=== PATIENT | female | born 2000 | race Caucasian/White ===

== ENCOUNTER 2021-02-01 14:34 | Emergency (ER) | payer MEDICAID, OTHER ==
[~2021-02-01] VITALS: Ht 162.5 cm; Wt 135.7 kg
[2021-02-01] MEDS ORDERED: IBUPROFEN 600 MG (MOTRIN) TAB PO ONE (15:00)
[2021-02-01 15:03] LABS: BILIRUBIN,URINE NEGATIVE (NEGATIVE); CLARITY,URINE CLOUDY; COLOR,URINE LIGHT RED; GLUCOSE, URINE (UA) NEGATIVE (NEGATIVE); KETONES,URINE NEGATIVE (NEGATIVE); LEUKOCYTE ESTERASE ,URINE NEGATIVE (NEGATIVE); NITRITE,URINE NEGATIVE (NEGATIVE); PROTEIN,URINE NEGATIVE (NEGATIVE); RBC,URINE TNTC /HPF
--- NOTE | 2021-02-01 15:41 | ED GU-Female ---
General Chief Complaint: Female Reproductive Stated Complaint: SEVERE MENSTRUAL CRAMPS Nursing Triage Note: Pt ambulatory to ED reporting severe menstrual cramping. Menses began yesterday, dose of Midol at 1000. Pt was prescribed BCP for regulation and she hadn't been able to get to [place] for them and off of them x 2 mo. Source: patient History of Present Illness Date Seen by Provider: Feb 01, 2021 Time Seen by Provider: 14:50 Initial Comments Patient is a 20-year-old female who is on day 2 of her menstrual period with history of menorrhagia who presents with painful menstrual bleeding. Pain is rated moderate to severe. Patient took a dose of Midol at 10 AM. Patient reports thick dark menstrual blood and has saturated 3 pads today. Typically she goes through 8 pads per cycle day. She has previously been prescribed oral contraceptive to control her bleeding. However due to her recent move the past 2 months she has been off control. She denies urinary frequency urgency dysuria. She denies flank pain, abdominal pain, nausea vomiting or sweats. No fevers chills, constipation or diarrhea. No other acute symptoms or complaints. No prior abdominal surgeries. Patient is currently sexually active. Timing/Duration: yesterday, intermittent Severity/Quality: throbbing Location: other Radiation: other Activities at Onset: sleep Sexual [place] History: other Modifying Factors: Improves With Vomiting Associated Symptoms: other Allergies and Home Medications Allergies Coded Allergies: No Known Drug Allergies (Unverified , 02/01/21) Patient Home Medication List Home Medication List Reviewed: Yes Review of Systems Review of Systems Constitutional: no symptoms reported EENTM: no symptoms reported Respiratory: no symptoms reported Cardiovascular: no symptoms reported Gastrointestinal: no symptoms reported : No LMP: Jan 31, 2021 Musculoskeletal: no symptoms reported Skin: see HPI Psychiatric/Neurological: No Symptoms Reported Endocrine: No Symptoms Reported Hematologic/Lymphatic: No Symptoms Reported All Other Systemes Reviewed Negative Unless Noted: Yes Past Tcgqwqm-Wizucs-Qydaca Hx Past Med/Social Hx: Reviewed Nursing Past Med/Soc Hx Patient Social History Alcohol Use: Denies Use Smoking Status: Current Someday Smoker Type Used: Electronic/Vapor 2nd Hand Smoke Exposure: Yes Recent Infectious Disease Expo: No Recent Hopitalizations: No Ebola Symptoms: Denies Symptoms Listed Immunizations Up To Date PED Vaccines UTD: Yes Seasonal Allergies Seasonal Allergies: No Past Medical History Surgeries: No Respiratory: No Cardiac: No Neurological: No Hx : 0 Hx Para: 0 Female Reproductive Disorders: Menstrual Problems Sexually Transmitted Disease: No Genitourinary: No Gastrointestinal: No Musculoskeletal: No Endocrine: No HEENT: No Cancer: No Psychosocial: Yes ADD/ADHD, Depression Integumentary: No Blood Disorders: No Physical Exam Vital Signs Vital Signs - First Documented 02/01/21 14:48 Temp 36.7 Pulse 83 Resp 18 B/P (MAP) 167/97 O2 Delivery Room Air Capillary Refill : Height, Weight, BMI Height: '" Weight: lbs. oz. kg; 51.00 BMI Method: General Appearance: WD/WN, no apparent distress, other HEENT: PERRL/EOMI, normal ENT inspection, pharynx normal Neck: non-tender, full range of motion, supple Cardiovascular: normal peripheral pulses, regular rate, rhythm Respiratory: lungs clear Gastrointestinal: soft, tenderness (suprapubic) Pelvic: no masses Back: no CVA tenderness, no vertebral tenderness Extremities: normal range of motion, non-tender, normal inspection Neurologic/Psychiatric: alert, oriented x 3 Skin: normal color Lymphatic: no adenopathy Focused Exam Sepsis Stage: Ruled Out Progress/Results/Core Measures Suspected Sepsis SIRS Temperature: Pulse: Respiratory Rate: Blood Pressure / Mean: Results/Orders Lab Results Laboratory Tests Test 02/01/21 14:50 Range/Units Urine Color LIGHT RED Urine Clarity CLOUDY Urine pH 6.0 5-9 Urine Specific [place] 1.010 L 1.016-1.022 Urine Protein NEGATIVE NEGATIVE Urine Glucose (UA) NEGATIVE NEGATIVE Urine Ketones NEGATIVE NEGATIVE Urine Nitrite NEGATIVE NEGATIVE Urine Bilirubin NEGATIVE NEGATIVE Urine Urobilinogen 0.2 < = 1.0 MG/DL Urine Leukocyte Esterase NEGATIVE NEGATIVE Urine RBC (Auto) 3+ H NEGATIVE Urine RBC TNTC H /HPF Urine WBC /HPF Urine Crystals /LPF Urine Bacteria /HPF Urine Casts /LPF Urine Mucus /LPF Urine Culture Indicated NO Urine Test NEGATIVE NEGATIVE My Orders Orders - TRAV BABCOCK DO Ua Culture If Indicated (02/01/21 14:57) Hcg,Qualitative Urine (02/01/21 14:57) Ibuprofen Tablet (Motrin Tablet) (02/01/21 15:00) Urine Bedside (02/01/21 15:07) Medications Given in ED Current Medications Medications Dose Ordered Sig/Jorge Route Start Time Stop Time Status Last Admin Dose Admin Ibuprofen 600 mg ONCE ONCE PO 02/01/21 15:00 02/01/21 15:01 DC 02/01/21 15:06 600 MG Vital Signs/I&O 02/01/21 14:48 Temp 36.7 Pulse 83 Resp 18 B/P (MAP) 167/97 O2 Delivery Room Air Capillary Refill : Departure Communication (Admissions) Abdomen soft, nonsurgical. Ibuprofen given for pain. UA negative for nitrates and leukocytes esterase. No dysuria reported. hCG negative. Ibuprofen given. Recommend watchful waiting supportive care with PCP follow-up. Return precautions reviewed. Patient verbalizes understanding agreement discharge instructions prior to departure. Impression Primary Impression: Dysmenorrhea Disposition: HOME, SELF-CARE Condition: Stable Departure-Patient Inst. Decision time for Depature: 15:41 Referrals: FERNANDO CHOE MD (PCP/Family) Primary Care Physician Patient Instructions: Menstrual Cramps (DC) Add. Discharge Instructions: Please alternate ibuprofen with Midol for treatment of pelvic pain and cramps. Follow-up with a local PCP or in origin human development professor for repeat evaluation and management of painful menstrual periods. Return to the ED if new or worsening symptoms. All discharge instructions reviewed with patient and/or family. Voiced understanding. TRAV BABCOCK DO Feb 01, 2021 15:41
== END 2021-02-01 15:43 | disposition home or self-care (01) ==
LOC: ER FS 14:38
DX: N94.6 Dysmenorrhea, unspecified (principal); F17.290 Nicotine dependence, other tobacco product, uncomplicated
CPT/HCPCS: 81000; 84703; 99283

== ENCOUNTER 2021-05-13 10:02 | Emergency (ER) | payer MEDICAID ==
[~2021-05-13] VITALS: Ht 162.6 cm; Wt 137.5 kg
[2021-05-13 10:14] VITALS: BP 149/84
--- NOTE | 2021-05-13 10:59 | ED General ---
General Chief Complaint: Back Problems Stated Complaint: BACK CYST Nursing Triage Note: Patient reports upper medial back/lower neck pain intermittently for 2-3 years. She reports the pain is usually worse in the morning. Source of Information: Patient History of Present Illness Date Seen by Provider: May 13, 2021 Time Seen by Provider: 10:08 Initial Comments 20-year-old female presenting with complaints of a tender mass or swollen area to the upper part of her back and lower neck. She states it has been there for several years but only been tender in the last few days. It seems to be worse in the mornings. She denies any direct trauma to the area. She has not taken any medication for it. She has not been seen for it previously. She denies any fever but feels like she has been getting chilled easily. She denies any numbness or tingling into her arms or legs. She has no chest pain. She does occasionally get migraine headaches but it does not seem to be related to when the swollen area on her back is tender. She reports recently moving to [place] and not establishing a doctor here since she moved from [place]. Associated Systoms: No Chest Pain, No Cough, No Diaphoresis, No Loss of Appetite, No Malaise, No Nausea/Vomiting, No Rash, No Seizure, No Shortness of Air, No Syncope, No Weakness Allergies and Home Medications Allergies Coded Allergies: No Known Drug Allergies (Unverified , 02/01/21) Patient Home Medication List Home Medication List Reviewed: Yes Review of Systems Review of Systems Constitutional: chills; No dizziness, No fever EENTM: no symptoms reported Respiratory: no symptoms reported Cardiovascular: no symptoms reported Gastrointestinal: no symptoms reported Genitourinary: no symptoms reported Musculoskeletal: see HPI, other (swollen area over upper thoracic and lower cervical spine area on back. slightly tender) Skin: No change in color Psychiatric/Neurological: See HPI; Denies Anxiety, Denies Numbness, Denies Paresthesia, Denies Tingling, Denies Weakness Past Xuxmhoq-Hcstnf-Azvfve Hx Patient Social History Tobacco Use?: No Use of E-Cig and/or Vaping dev: Yes Substance use?: No Alcohol Use?: No Pt feels they are or have been: No Immunizations Up To Date PED Vaccines UTD: Yes Seasonal Allergies Seasonal Allergies: No Past Medical History Surgery/Hospitalization HX: Polycystic Ovarian Disease Surgeries: No Respiratory: No Cardiac: No Neurological: No Female Reproductive Disorders: Menstrual Problems Sexually Transmitted Disease: No Genitourinary: No Gastrointestinal: No Musculoskeletal: No Endocrine: No HEENT: No Cancer: No Psychosocial: Yes ADD/ADHD, Depression Integumentary: No Blood Disorders: No Physical Exam Vital Signs Vital Signs - First Documented 05/13/21 10:14 Temp 35.9 Pulse 80 Resp 20 B/P (MAP) 149/84 (105) Pulse Ox 99 O2 Delivery Room Air Capillary Refill : Less Than 3 Seconds Height, Weight, BMI Height: '" Weight: lbs. oz. kg; 52.00 BMI Method: General Appearance: No Apparent Distress, Obese HEENT: PERRL/EOMI Neck: Full Range of Motion, Normal Inspection, Non Tender, Supple Respiratory: Chest Non Tender, Lungs Clear, Normal Breath Sounds, No Accessory Muscle Use, No Respiratory Distress Cardiovascular: Regular Rate, Rhythm, Normal Peripheral Pulses Back: Other (swollen slightly tender area over lower cervical and upper thoracic spine. mass has a spongy consistency and does not seem to have fluctuance or fluid wave. No erythema or increased warmth) Extremity: Normal Capillary Refill, Normal Inspection, No Pedal Edema Neurologic/Psychiatric: Alert, Oriented x3, No Motor/Sensory Deficits, Normal Mood/Affect, ground water technician II-XII Norm as Tested Skin: Normal Color, Warm/Dry; No Erythema Progress/Results/Core Measures Suspected Sepsis SIRS Temperature: Pulse: 80 Respiratory Rate: 20 Blood Pressure 149 /84 Mean: 105 Results/Orders My Orders Orders - MIRYAM BARRERA MD Ct Chest Wo (05/13/21 10:52) Vital Signs/I&O 05/13/21 10:14 Temp 35.9 Pulse 80 Resp 20 B/P (MAP) 149/84 (105) Pulse Ox 99 O2 Delivery Room Air Capillary Refill : Less Than 3 Seconds Blood Pressure Mean: 105 Progress Note #1: Progress Note Will check CT chest to see if the soft tissue area shows up as anything abnormal to get more detail on the mass. There looks to be a possible lipoma to the back but will see if the scan can get more detail of the area. Advised pt that she may need to have surgery to remove it if it is bothering her. Progress Note #2: Progress Note Advised pt that no specific abnormality on CT scan. Could just be collection of subcutaneous fatty tissue or possible Lipoma. Try NSAIDS for discomfort and check with clinic for continued concerns. If persists to give her pain/concerns then they may do ultrasound or MRI to get further detail Diagnostic Imaging Diagonstic Imaging: CT Plain Films/CT/US/NM/MRI: chest Comments [facility] [place] NAME: JULIEN MERA [facility] REC#: [id number] PT STATUS: DEP ER : 2001 PHYSICIAN: MIRYAM BARRERA MD ADMIT DATE: 05/13/21/ER FS Draft Date of Exam:05/13/21 CT CHEST WO PROCEDURE: CT chest without contrast. TECHNIQUE: Multiple contiguous axial images were obtained through the chest without the use of intravenous contrast. Auto Exposure Controls were utilized during the CT exam to meet ALARA standards for radiation dose reduction. INDICATION: Painful lump in the upper midback. FINDINGS: No visible marker is identified to denote the area of painful lump. This would be helpful. No definite thoracic lymphadenopathy is seen. There is no pericardial or pleural fluid identified. No pulmonary infiltrates, nodules, or masses are seen. There appears to be normal curvature and alignment of the thoracic spine. Vertebral body heights are maintained. No definite soft tissue mass or fluid collection is identified. The upper abdomen is unremarkable. IMPRESSION: Unremarkable noncontrast CT of the chest. Dictated on workstation # [id number] Dict: 05/13/21 1207 Trans: 05/13/21 1217 [id number] [id number] Interpreted by: INOCENCIO MERA MD Electronically signed by: Reviewed: Reviewed by Me Departure Impression Primary Impression: Subcutaneous mass of back Disposition: 01 HOME, SELF-CARE Condition: Stable Departure-Patient Inst. Decision time for Depature: 11:38 Referrals: NO,LOCAL PHYSICIAN (PCP) Primary Care Physician [facility] Patient Instructions: Lipoma Add. Discharge Instructions: The area of swelling on your back does not appear to be a cyst or fluid filled mass. There appears to be a collection of subcutaneous fat tissue in this area and it could be a lipoma causing your symptoms. Establish care with a local provider with [facility] by calling [phone] and they can continue to work with you on this and with your Polycystic Ovarian issues as well. In the meantime you could try taking an anti-inflammatory medicine like Ibuprofen or Naproxen to help with the discomfort in the area. All discharge instructions reviewed with patient and/or family. Voiced understanding. Work/School Note: Work Release Form Date Seen in the Emergency Department: May 13, 2021 Return to Work: May 13, 2021 Restrictions: No Restrictions Other Restrictions Listed Below: Please excuse being a few minutes late as coming from ER. Images Torso/Trunk 1 - Swelling (swollen area of tissue that is slightly tender) MIRYAM BARRERA MD May 13, 2021 10:59
--- NOTE | 2021-05-13 12:17 | Diagnostic Imaging Report ---
PROCEDURE: CT chest without contrast. TECHNIQUE: Multiple contiguous axial images were obtained through the chest without the use of intravenous contrast. Auto Exposure Controls were utilized during the CT exam to meet ALARA standards for radiation dose reduction. INDICATION: Painful lump in the upper midback. FINDINGS: No visible marker is identified to denote the area of painful lump. This would be helpful. No definite thoracic lymphadenopathy is seen. There is no pericardial or pleural fluid identified. No pulmonary infiltrates, nodules, or masses are seen. There appears to be normal curvature and alignment of the thoracic spine. Vertebral body heights are maintained. No definite soft tissue mass or fluid collection is identified. The upper abdomen is unremarkable. IMPRESSION: Unremarkable noncontrast CT of the chest. Dictated by: Dictated on workstation # [id number]
== END 2021-05-13 11:47 | disposition home or self-care (01) ==
LOC: EDUNIT# 10:02 → ER FS 10:04
DX: R22.2 Localized swelling, mass and lump, trunk (principal); E66.9 Obesity, unspecified
CPT/HCPCS: 71250

== ENCOUNTER 2021-05-27 19:49 | Emergency (ER) | payer MEDICAID ==
[~2021-05-27] VITALS: Ht 162.5 cm; Wt 141.6 kg
[2021-05-27] MEDS ORDERED: METH4TAB10 PO (20:32)
--- NOTE | 2021-05-27 20:32 | ED EENT ---
History of Present Illness General Chief Complaint: Oral/Throat Problems Stated Complaint: TONSIL SWELLING/IRRITAION Nursing Triage Note: PT IN PER POV WITH C/O SORE THROAT X3 HOURS. REPORTS TAKING IBUPROFEN AT 1700. STATES CONTACT WITH SOMEONE POSITIVE STREP THROAT X3 DAYS AGO. Source: patient Exam Limitations: no limitations History of Present Illness Date Seen by Provider: May 27, 2021 Time Seen by Provider: 20:19 Initial Comments 20-year-old female with no significant past medical history coming in due to a sore throat that is been ongoing for roughly 3 hours. Pain is roughly 1 out of 10, mild, sharp pain. Worse with swallowing. Says someone she was around had strep throat 3 days ago. Denies any fever. Did take ibuprofen for the pain which helped. Denies any cough, shortness of breath, vomiting, diarrhea, weakness, numbness, chest pain, or any other concerns. LMP was 3 weeks ago. Does vape. Allergies and Home Medications Allergies Coded Allergies: No Known Drug Allergies (Unverified , 02/01/21) Patient Home Medication List Home Medication List Reviewed: Yes Review of Systems Review of Systems Constitutional: No chills, No fever Eyes: Denies Blurred Vision Ears: Denies Dizziness Nose: denies congestion, denies pain Mouth: no symptoms reported Throat: pain; denies swelling, denies neck stiffness, denies muffled; painful swallowing; denies difficulty with fluids Respiratory: No cough, No short of breath Cardiovascular: No chest pain Gastrointestinal: No abdominal pain, No diarrhea, No nausea, No vomiting Musculoskeletal: no symptoms reported Skin: no symptoms reported Neurological: No Symptoms Reported Hematologic/Lymphatic: No Symptoms Reported Immunological/Allergic: no symptoms reported All Other Systems Reviewed Negative Unless Noted: Yes Past Gtlodcx-Cxabjx-Ewatpo Hx Patient Social History Tobacco Use?: No Use of E-Cig and/or Vaping dev: Yes Use of E-Cig and/or Vaping Biju: Current Everyday User Substance use?: No Alcohol Use?: No Pt feels they are or have been: No Immunizations Up To Date PED Vaccines UTD: Yes Influenza Vaccine Up-to-Date: No; Not Current Seasonal Allergies Seasonal Allergies: No Past Medical History Surgery/Hospitalization HX: Polycystic Ovarian Disease Surgeries: No Respiratory: No Cardiac: No Neurological: No Female Reproductive Disorders: Menstrual Problems Sexually Transmitted Disease: No Genitourinary: No Gastrointestinal: No Musculoskeletal: No Endocrine: No HEENT: No Cancer: No Psychosocial: Yes ADD/ADHD, Depression Integumentary: No Blood Disorders: No Physical Exam Vital Signs Vital Signs - First Documented 05/27/21 19:52 Temp 36.7 Pulse 94 Resp 16 B/P (MAP) 174/82 (112) Pulse Ox 99 O2 Delivery Room Air Height, Weight, BMI Height: '" Weight: lbs. oz. kg; 53.00 BMI Method: General Appearance: WD/WN, no apparent distress Eyes: bilateral eye normal inspection, bilateral eye PERRL, bilateral eye EOMI Ears: bilateral ear auricle normal, bilateral ear canal normal, bilateral ear TM normal Nose: normal inspection Mouth/Throat: normal mouth inspection; No dental tenderness, No mandibular swelling, No tongue swollen, No tonsillar exudate, No tonsillar swelling, No trismus, No uvula swelling; other (Mild erythema in the pharynx without exudate) Neck: non-tender, full range of motion, supple, normal inspection Cardiovascular: regular rate, rhythm, no edema, no murmur Respiratory: chest non-tender, lungs clear, normal breath sounds, no respiratory distress, no accessory muscle use Gastrointestinal: normal bowel sounds, non tender, soft; No guarding, No rebou nd Neurologic/Psychiatric: no motor/sensory deficits, alert, normal mood/affect Skin: normal color, warm/dry Progress/Results/Core Measures Results/Orders Vital Signs/I&O 05/27/21 19:52 Temp 36.7 Pulse 94 Resp 16 B/P (MAP) 174/82 (112) Pulse Ox 99 O2 Delivery Room Air Blood Pressure Mean: 112 Progress Progress Note : Progress Note 20-year-old female with above history coming in due to sore throat. ABCs were intact and vitals were stable on presentation. Most notably she is afebrile, no trismus, no significant swelling in her oropharynx at all, normal range of motion of her neck without tenderness along her neck, and she has no signs of serious infection in the back of her throat such as peritonsillar abscess or r etropharyngeal abscess. She does have mild erythema that appears like viral pharyngitis. No signs of bacterial pharyngitis. Will recommend steroids to help with the pain and hoarseness. I believe she is stable for discharge. She was sent home with strict return precautions Departure Impression Primary Impression: Viral pharyngitis Disposition: HOME, SELF-CARE Condition: Stable Departure-Patient Inst. Decision time for Depature: 20:30 Referrals: NO,LOCAL PHYSICIAN (PCP/Family) Primary Care Physician Patient Instructions: Sore Throat, Adult (DC) Add. Discharge Instructions: You were seen in the emergency department for sore throat. It does not look like a bacterial infection that would benefit from antibiotics. It looks viral which sometimes steroids can help with the pain associated with this. Otherwise take ibuprofen and drink plenty of fluids. If you develop any fever, cough, shortness of breath, vomiting, diarrhea, or any other concerns you may benefit from a Covid test, but it does not appear like that at this time. All discharge instructions reviewed with patient and/or family. Voiced understanding. Scripts Methylprednisolone (Methylprednisolone Dose Pack) 4 Mg Tab.ds.pk 4 MG PO UD for 6 Days, #21 PKG PER DOSE PACK INSTRUCTIONS Prov: STEVEN HOWARD MD 05/27/21 STEVEN HOWARD MD May 27, 2021 20:32
[2021-05-27 20:33] VITALS: BP 174/82
== END 2021-05-27 20:36 | disposition home or self-care (01) ==
LOC: EDUNIT# 19:49 → ER FS 19:50
DX: J02.8 Acute pharyngitis due to other specified organisms (principal); F17.200 Nicotine dependence, unspecified, uncomplicated
CPT/HCPCS: 99283